=== PATIENT | male | born 1965 | race Two or more races ===

== ENCOUNTER 2017-03-06 14:32 | Emergency (ER) | payer MEDICAID ==
[~2017-03-06] VITALS: Ht 160 cm; Wt 74.8 kg
[~2017-03-06 14:32] MED LIST: AMLO10TA2 PO; CARV25TA PO; LISI-275 PO
[2017-03-06 15:24] VITALS: BP 138/78
== END 2017-03-06 16:01 | disposition home or self-care (01) ==
LOC: ER 14:32
DX: Z76.1 Encounter for health supervision and care of foundling (principal); I12.0 Hypertensive chronic kidney disease with stage 5 chronic kidney disease or end stage renal disease; E11.22 Type 2 diabetes mellitus with diabetic chronic kidney disease; N18.6 End stage renal disease; Z99.2 Dependence on renal dialysis; Z83.3 Family history of diabetes mellitus; Z79.4 Long term (current) use of insulin

== ENCOUNTER 2017-04-17 13:36 | Emergency (ER) | payer MEDICAID ==
[~2017-04-17] VITALS: Ht 160 cm; Wt 59.0 kg
[2017-04-17 14:27] VITALS: BP 138/90
== END 2017-04-17 14:57 | disposition home or self-care (01) ==
LOC: ER 13:46
DX: I12.0 Hypertensive chronic kidney disease with stage 5 chronic kidney disease or end stage renal disease (principal); E11.22 Type 2 diabetes mellitus with diabetic chronic kidney disease; N18.6 End stage renal disease; Z99.2 Dependence on renal dialysis; Z79.899 Other long term (current) drug therapy; Z76.0 Encounter for issue of repeat prescription

== ENCOUNTER → 2019-08-11 | Emergency (ER) | payer MEDICARE, MEDICAID ==
[~2019-08-11] VITALS: Ht 157.5 cm; Wt 59.0 kg
[~2019-08-11] MED LIST changes: +AMLO10TA13 PO; -AMLO10TA2 PO; +CAR125T PO; +LINA5TAB PO
[2019-08-11 13:18] LABS: Basophils # (auto) 0 10 ^3/uL (0-0.2); Eosinophils # (auto) 0.3 10 ^3/uL (0-0.8); Eosinophils % (auto) 5.6 % (0.0-7.0); Hematocrit 39.5 % (41.0-53.0); Hemoglobin 12.6 g/dL (13.5-17.5); Lymphocytes # (auto) 1.1 10 ^3/uL (0.4-5.4); Lymphocytes % (auto) 23.1 % (10.0-50.0); Mean Corpuscular Hemoglobin 31.7 pg (28.0-32.0); Mean Corpuscular Hgb Conc. 31.9 g/dL (32.0-36.0); Mean Corpuscular Volume 99.3 fL (80.0-100.0); Monocytes # (auto) 0.5 10 ^3/uL (0-1.3); Monocytes % (auto) 10.5 % (0.0-12.0); Neutrophils # (auto) 2.8 10 ^3/uL (1.6-8.6); Neutrophils % (auto) 59.8 % (37.0-80.0); Nucleated Red Blood Cells % 0.1 %; Platelet Count (auto) 191 10^3/uL (140-450); Red Blood Cells 3.98 10^6/uL (4.5-5.90); Red Cell Distribution Width 15.2 % (11.8-14.3); White Blood Cell 4.6 10^3/uL (4.4-10.8)
[2019-08-11 13:33] LABS: Albumin 3.9 g/dL (3.4-5.0); Calcium 8.6 mg/dL (8.5-10.1); Magnesium 3.4 mg/dL (1.6-2.6); Potassium 4.6 mmol/L (3.5-5.1)
[2019-08-11 13:36] LABS: BUN/Creatinine Ratio 5.5; Bilirubin, Total 0.4 mg/dL (0.2-1.0); Total Protein 7.8 g/dL (6.4-8.2)
[2019-08-11 14:07] VITALS: BP 155/76
== END | disposition home or self-care (01) ==
LOC: ER 11:36
DX: E11.22 Type 2 diabetes mellitus with diabetic chronic kidney disease (principal); I12.0 Hypertensive chronic kidney disease with stage 5 chronic kidney disease or end stage renal disease; N18.6 End stage renal disease; Z99.2 Dependence on renal dialysis
CPT/HCPCS: 36415; 80053; 83735; 85025

== ENCOUNTER 2019-08-12 20:34 | Inpatient (IN) | payer MEDICARE, MEDICAID ==
[~2019-08-12] VITALS: Ht 160 cm; Wt 56.2 kg
[~2019-08-12 20:34] MED LIST changes: -CAR125T PO; -LINA5TAB PO
[2019-08-12 21:41] LABS: Basophils # (auto) 0 10 ^3/uL (0-0.2); Basophils % (auto) 0.7 % (0.0-2.0); Eosinophils # (auto) 0.3 10 ^3/uL (0-0.8); Eosinophils % (auto) 7.6 % (0.0-7.0); Hematocrit 34.7 % (41.0-53.0); Hemoglobin 11.5 g/dL (13.5-17.5); Lymphocytes # (auto) 0.9 10 ^3/uL (0.4-5.4); Lymphocytes % (auto) 19.7 % (10.0-50.0); Mean Corpuscular Hemoglobin 32.8 pg (28.0-32.0); Mean Corpuscular Hgb Conc. 33.2 g/dL (32.0-36.0); Mean Corpuscular Volume 98.9 fL (80.0-100.0); Monocytes # (auto) 0.4 10 ^3/uL (0-1.3); Monocytes % (auto) 9.9 % (0.0-12.0); Neutrophils # (auto) 2.8 10 ^3/uL (1.6-8.6); Neutrophils % (auto) 62.1 % (37.0-80.0); Platelet Count (auto) 170 10^3/uL (140-450); Red Blood Cells 3.51 10^6/uL (4.5-5.90); Red Cell Distribution Width 15.2 % (11.8-14.3); White Blood Cell 4.5 10^3/uL (4.4-10.8)
[2019-08-12 22:14] LABS: Albumin 3.6 g/dL (3.4-5.0); Calcium 7.7 mg/dL (8.5-10.1)
[2019-08-12 22:18] LABS: BUN/Creatinine Ratio 6.6; Bilirubin, Total 0.3 mg/dL (0.2-1.0); Total Protein 7.1 g/dL (6.4-8.2)
[2019-08-12 22:45] LABS: Potassium 5.7 mmol/L (3.5-5.1)
[2019-08-12] MEDS ORDERED: DEXTROSE (50%) 50ML SYRG IV ONE (23:00)
[2019-08-12] MEDS ORDERED: CALCIUM GLUC 4.65meq/50ml D5AE 50 ML IV ONE (23:00)
[2019-08-12] MEDS ORDERED: SODIUM BICARBONATE 8.4 % INJ 50ML VIAL IV ONE (23:00)
[2019-08-12] MEDS ORDERED: InsuLIN REG 1unit/0.01ml Soln (100units/ml) IV ONE (23:00)
[2019-08-13] VITALS (7 sets, daily range): BP systolic 141–164; BP diastolic 72–81
[2019-08-13] MEDS ORDERED: DEXTROSE (50%) 50ML SYRG IV PRN (00:30)
[2019-08-13] MEDS ORDERED: ACETAMINOPHEN 325 MG TAB PO PRN (00:30)
[2019-08-13] MEDS ORDERED: ONDANSETRON HCL 4 MG/2 ML VIAL IV PRN (00:30)
[2019-08-13] MEDS ORDERED: TEMAZEPAM 15 MG CAP PO PRN (00:30)
[2019-08-13] MEDS ORDERED: MORPHINE SULF INJ 2 MG/ML SYRINGE 1ML IV PRN (00:45)
[2019-08-13] MEDS ORDERED: NITROGLYCERIN 0.4 MG SL TAB SL PRN (00:45)
--- NOTE | 2019-08-13 01:50 | NUR ---
Telemetry admit from ER MARLENE BRITT J admitted to Telemetry unit. Patient oriented to KRISH GARCIA OCA, primary RN, unit, room, bed, and unit policies regarding patient care and visiting hours. Patient now on continuous telemetry monitoring, tele box #52 and telemetry reading on arrival to unit is sinus rhythm. Patient weighed by bedscale and encouraged to call if they need something. All questions and concerns addressed, patient verbalized understanding. Bed in lowest locked position, call light within reach, side rails up x2, fall precautions in place. Will continue to monitor Q1hr and PRN.
[2019-08-13] MEDS: cloNIDine HCL 0.1 MG TAB PO PRN (02:30)
[2019-08-13] MEDS ORDERED: CAR125T PO (02:45)
[2019-08-13] MEDS ORDERED: LINA5TAB PO (02:45)
[2019-08-13] MEDS: InsuLIN REG 1unit/0.01ml Soln (100units/ml) SC SCH ×3 (06:00→18:03)
[2019-08-13] MEDS: ACCU-CHEK COMFORT CURVE STRIP VI SCH ×3 (06:16→18:03)
--- NOTE | 2019-08-13 07:40 | NUR ---
Opening shift note Assumed care of patient. Patient A&Ox4, respirations even and non-labored with no s/s of distress. POC on white board. Discussed pain and patient stated that he was 0/10 pain. IV flushed, patent and intact. Bed lowered/locked with 2 side rails up. Will continue to monitor.
[2019-08-13 07:43] LABS: BUN/Creatinine Ratio 6.9; Calcium 8.1 mg/dL (8.5-10.1); Potassium 5.2 mmol/L (3.5-5.1)
[2019-08-13] MEDS: amLODIPine BESYLATE 5 MG TAB PO SCH (10:00)
[2019-08-13] MEDS: CARVEDILOL 12.5 MG TAB PO SCH ×2 (10:00→21:27)
[2019-08-13] MEDS: LISINOPRIL 5 MG TAB PO SCH (10:00)
[2019-08-13] MEDS: PANTOPRAZOLE 40 MG TAB PO SCH (10:24)
[2019-08-13] MEDS ORDERED: SODIUM CHL 0.9% 1000 ML BAG XX ONE (11:00)
--- NOTE | 2019-08-13 15:01 | NUR ---
Assessment Patient is a 54- year old male alert and oriented. Assessment was completed with patient dafne Lamb. Prior to admission patient lived home with family. Patient son Adonis informed me patient can care for his own ADLs. Patient will return home to his prior living arrangements post discharge and family will transport him home. 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 Patient will benefit from a walker. Informed Adonis I will inform Nurse regarding order for walker. dAonis informed me patient had a chair time in [facility] and recently move to [facility] which he missed 4 days of dialysis. Advised Adonis there is a Social Service consult for outpatient chair time with [facility]. Informed Adonis clinical information will be faxed to [facility] dialysis. Informed patient dafne Lamb he has the right to participate in all discharge planning. Patient dafne Lamb verbalized understanding and agrees to discharge plan. Faxed Clinical information to [facility]. Placed called to Cheri with [facility] advising her patient was on dialyisis in [facility]. Cheri with [facility] advised me patient will be consider as a new admit and will follow up with me with chair time after order has been reviewed. Addendum: 08/13/19 at 1501 by ROGELIO GONZALES Amended: Links added.
--- NOTE | 2019-08-13 15:47 | NUR ---
D/C Planning Per consult for a walker. Faxed clinical information to [facility] requesting for walker to be deliver to bedside. Per Sandra with [facility] Ph:( [phone]) order was received and they will deliver walker to bedside upon d/c day. Addendum: 08/13/19 at 1550 by ROGELIO ARIAS Amended: Links added.
--- NOTE | 2019-08-13 19:20 | NUR ---
Opening Shift Note Assumed care of patient, awake and alert. No S/S of distress/SOB or pain. Instructed on POC and to call for assist PRN. Bed in lowest locked position, call light within reach, side rails up x2, fall precautions in place. Will continue to monitor for changes Q1hr and PRN.
[2019-08-14] VITALS (7 sets, daily range): BP systolic 128–145; BP diastolic 72–80
[2019-08-14] MEDS: InsuLIN REG 1unit/0.01ml Soln (100units/ml) SC SCH ×4 (00:01→18:00)
[2019-08-14 05:37] LABS: Basophils # (auto) 0 10 ^3/uL (0-0.2); Basophils % (auto) 0.7 % (0.0-2.0); Eosinophils # (auto) 0.3 10 ^3/uL (0-0.8); Eosinophils % (auto) 6.4 % (0.0-7.0); Hematocrit 34.5 % (41.0-53.0); Hemoglobin 11.6 g/dL (13.5-17.5); Lymphocytes # (auto) 1.1 10 ^3/uL (0.4-5.4); Lymphocytes % (auto) 27.3 % (10.0-50.0); Mean Corpuscular Hemoglobin 32.9 pg (28.0-32.0); Mean Corpuscular Hgb Conc. 33.5 g/dL (32.0-36.0); Monocytes # (auto) 0.5 10 ^3/uL (0-1.3); Monocytes % (auto) 11.5 % (0.0-12.0); Neutrophils # (auto) 2.2 10 ^3/uL (1.6-8.6); Neutrophils % (auto) 54.1 % (37.0-80.0); Nucleated Red Blood Cells % 0.1 %; Platelet Count (auto) 128 10^3/uL (140-450); Red Blood Cells 3.52 10^6/uL (4.5-5.90); Red Cell Distribution Width 14.9 % (11.8-14.3); White Blood Cell 4.1 10^3/uL (4.4-10.8)
[2019-08-14] MEDS: ACCU-CHEK COMFORT CURVE STRIP VI SCH ×4 (06:16→18:00)
--- NOTE | 2019-08-14 07:30 | NUR ---
RECEIVED REPORT FROM NIGHT NURSE. PATIENT RESTING IN BED, NO DISTRESS NOTED.
[2019-08-14 08:49] LABS: Hepatitis B Surface Antibody Positive
[2019-08-14 09:25] LABS: Hepatitis A Total Antibody Positive
[2019-08-14] MEDS: PANTOPRAZOLE 40 MG TAB PO SCH (09:31)
[2019-08-14] MEDS: amLODIPine BESYLATE 5 MG TAB PO SCH (09:31)
[2019-08-14] MEDS: CARVEDILOL 12.5 MG TAB PO SCH ×2 (09:31→22:02)
[2019-08-14] MEDS: LISINOPRIL 5 MG TAB PO SCH (09:32)
[2019-08-14 09:43] LABS: Hepatitis B Core Total AB Negative; Hepatitis B Surface Antigen Negative (Negative); Hepatitis C Antibody Negative (Negative)
[2019-08-14 09:45] LABS: Hepatitis B Surface Antigen Negative (Negative)
[2019-08-14 09:46] LABS: Hepatitis C Antibody Negative (Negative)
--- NOTE | 2019-08-14 11:00 | NUR ---
DOCTOR JACKSON AT BEDSIDE.
[2019-08-14 11:25] LABS: BUN/Creatinine Ratio 5.8; Potassium 4.3 mmol/L (3.5-5.1)
--- NOTE | 2019-08-14 12:24 | NUR ---
D/C Planning Placed follow up called to Cheri with [facility]. Per Cheri with [facility] they are pending financial clearance and will follow up with me once its clear to provide chair time.
--- NOTE | 2019-08-14 19:40 | NUR ---
Opening Shift Note Assumed care of patient, awake, AAOx4. No S/S of distress/SOB or pain. On room air and ambulatory. Primarily Italian speaking but can communicate in Singaporean. Bed in lowest locked position, side rails up x2, call light within reach. Instructed on POC and to call for assist PRN, will continue to monitor for changes Q1hr and PRN.
[2019-08-15] MEDS: ACCU-CHEK COMFORT CURVE STRIP VI SCH ×5 (00:11→23:19)
[2019-08-15] MEDS: InsuLIN REG 1unit/0.01ml Soln (100units/ml) SC SCH ×5 (00:17→23:19)
[2019-08-15 05:00] VITALS: BP 140/78
--- NOTE | 2019-08-15 05:17 | NUR ---
BORE MINER OPERATOR AT BEDSIDE
[2019-08-15] MEDS ORDERED: SODIUM CHL 0.9% 1000 ML BAG XX ONE (07:00)
--- NOTE | 2019-08-15 08:20 | NUR ---
Received report from dialysis nurse stop time was 07:59 . 2.1 liters removed end v/s 119/60 54 pulse, 16 respirations. Patient tolerated well.
--- NOTE | 2019-08-15 08:32 | NUR ---
D/C Planning Received a follow up called from Pamella with [facility] dialysis advising me they are pending authorization from patient secondary insurance and will follow up with chair time once they receive authorization. Will informed nurse.
--- NOTE | 2019-08-15 08:39 | NUR ---
Received call from Shayla major case detective, per Shayla roberto is requesting authorization from patient's secondary insurance once received they will schedule chair time.
[2019-08-15 09:00] VITALS: BP 146/80
[2019-08-15] MEDS: PANTOPRAZOLE 40 MG TAB PO SCH (09:56)
[2019-08-15] MEDS: LISINOPRIL 5 MG TAB PO SCH (09:58)
[2019-08-15] MEDS: amLODIPine BESYLATE 5 MG TAB PO SCH (09:58)
[2019-08-15] MEDS: CARVEDILOL 12.5 MG TAB PO SCH ×2 (10:10→21:33)
[2019-08-15 13:00] VITALS: BP 159/73
--- NOTE | 2019-08-15 15:17 | NUR ---
D/C Planning Placed followed up called to Cheri with [facility] dialysis. Per Cheri with [facility] they are still pending authorization from secondary insurance and it can take up to Sunday08/19/2019. Will follow up on Sunday.
[2019-08-15 16:52] VITALS: BP 117/60
--- NOTE | 2019-08-15 19:07 | NUR ---
Patient resting in bed, respiration are even and unlabored, no S/S of distress noted. Care endorsed to NOC estrellita Mayorga.
[2019-08-15 21:58] VITALS: BP 119/67
[2019-08-16 05:08] VITALS: BP 141/67
[2019-08-16] MEDS: InsuLIN REG 1unit/0.01ml Soln (100units/ml) SC SCH ×4 (06:00→23:26)
[2019-08-16] MEDS: ACCU-CHEK COMFORT CURVE STRIP VI SCH ×4 (06:20→23:25)
--- NOTE | 2019-08-16 07:18 | NUR ---
Opening Shift Note Assumed care of patient, awake and alert. No S/S of distress/SOB or pain. Instructed on POC and to call for assist PRN, will continue to monitor for changes Q1hr and PRN. Bed is set in lowest locked position with side rails up x2 for safety and call light is within reach.
[2019-08-16 08:00] VITALS: BP 134/70
[2019-08-16 08:57] VITALS: BP 134/70
--- NOTE | 2019-08-16 09:15 | NUR ---
MD at bedside Dr. Ovalle, updated pt on POC and notified patient we are currently awaiting chair time to be arranged before discharge planning can continue. Patient verbalized understanding.
[2019-08-16] MEDS: amLODIPine BESYLATE 5 MG TAB PO SCH (10:00)
[2019-08-16] MEDS: PANTOPRAZOLE 40 MG TAB PO SCH (10:07)
[2019-08-16] MEDS: LISINOPRIL 5 MG TAB PO SCH (10:08)
[2019-08-16 12:33] VITALS: BP 123/75
[2019-08-16 16:37] VITALS: BP 136/73
--- NOTE | 2019-08-16 19:25 | NUR ---
Opening note pt is resting in left lateral position. pt is mostly Chilean speaking. pt denies pain at this time. respirations are even and non labored on room air. bed in low locked position, and call light is within reach.
[2019-08-16 22:00] VITALS: BP 129/66
--- NOTE | 2019-08-17 02:12 | NUR ---
pt resting comfortably in left lateral, respirations even and nonlabored, no s/s of pain or discomfort.
[2019-08-17 05:00] VITALS: BP 149/74
[2019-08-17] MEDS: ACCU-CHEK COMFORT CURVE STRIP VI SCH ×4 (05:17→23:56)
[2019-08-17] MEDS: InsuLIN REG 1unit/0.01ml Soln (100units/ml) SC SCH ×4 (05:17→23:56)
--- NOTE | 2019-08-17 06:49 | NUR ---
closing note pt is A&Ox4. pt denies pain or discomfort. respirations are even and non labored. bed in low locked position, call light within reach.
--- NOTE | 2019-08-17 07:15 | NUR ---
Opening Shift Note Assumed care of patient, awake and alert. No S/S of distress/SOB or pain. Instructed on POC and to call for assist PRN, will continue to monitor for changes Q1hr and PRN. Bed is set in lowest locked position with side rails up x 2 for safety and call light is within reach.
[2019-08-17 08:01] VITALS: BP 142/72
[2019-08-17 09:00] VITALS: BP 142/72
[2019-08-17] MEDS: PANTOPRAZOLE 40 MG TAB PO SCH (09:40)
[2019-08-17] MEDS: LISINOPRIL 5 MG TAB PO SCH (09:40)
[2019-08-17] MEDS: amLODIPine BESYLATE 5 MG TAB PO SCH (09:41)
[2019-08-17 13:00] VITALS: BP 140/77
[2019-08-17 13:17] LABS: BUN/Creatinine Ratio 7.8; Calcium 8.1 mg/dL (8.5-10.1)
--- NOTE | 2019-08-17 13:37 | NUR ---
Spoke to MD Dr. Osmany MD aware of patient's BUN level of 94 and creatinine level of 12.10. No new orders received at this time.
--- NOTE | 2019-08-17 16:28 | NUR ---
Spoke with dialysis nurse Nurse states she is on her way to hospital and patient is to be dialyzed today per MD order.
[2019-08-17 17:00] VITALS: BP 122/66
--- NOTE | 2019-08-17 17:47 | NUR ---
Dialysis nurse at bedside
[2019-08-17] MEDS ORDERED: SODIUM CHL 0.9% 1000 ML BAG XX ONE (18:00)
--- NOTE | 2019-08-17 19:24 | NUR ---
Care endorsed to NOC RN.
[2019-08-17] MEDS ORDERED: EPOETIN ALFA 10,000 UNIT/1 ML VIAL SC ONE (21:00)
--- NOTE | 2019-08-17 21:00 | NUR ---
Pt finished with HD Per lodge officer there was 2l of fluid taken out. Pt tolerated well. BP-126/76, HR-68.
[2019-08-17 22:00] VITALS: BP 122/71
[2019-08-18 05:00] VITALS: BP 114/71
[2019-08-18] MEDS: InsuLIN REG 1unit/0.01ml Soln (100units/ml) SC SCH ×3 (05:27→18:03)
[2019-08-18] MEDS: ACCU-CHEK COMFORT CURVE STRIP VI SCH ×3 (05:30→18:02)
[2019-08-18 05:39] LABS: Basophils # (auto) 0 10 ^3/uL (0-0.2); Basophils % (auto) 0.6 % (0.0-2.0); Eosinophils # (auto) 0.2 10 ^3/uL (0-0.8); Hematocrit 37.4 % (41.0-53.0); Hemoglobin 12.7 g/dL (13.5-17.5); Lymphocytes # (auto) 0.9 10 ^3/uL (0.4-5.4); Lymphocytes % (auto) 20.8 % (10.0-50.0); Mean Corpuscular Hemoglobin 33.1 pg (28.0-32.0); Mean Corpuscular Volume 97.4 fL (80.0-100.0); Monocytes # (auto) 0.5 10 ^3/uL (0-1.3); Monocytes % (auto) 11.7 % (0.0-12.0); Neutrophils # (auto) 2.5 10 ^3/uL (1.6-8.6); Neutrophils % (auto) 60.9 % (37.0-80.0); Nucleated Red Blood Cells % 0.1 %; Platelet Count (auto) 114 10^3/uL (140-450); Red Blood Cells 3.84 10^6/uL (4.5-5.90); Red Cell Distribution Width 14.8 % (11.8-14.3); White Blood Cell 4.1 10^3/uL (4.4-10.8)
[2019-08-18 06:13] LABS: Chloride 101 mmol/L (98-107); Potassium 5.3 mmol/L (3.5-5.1); Sodium 139 mmol/L (136-145)
[2019-08-18 06:24] LABS: Anion Gap 11 (5-15); Calcium 8.1 mg/dL (8.5-10.1); Carbon Dioxide 27 mmol/L (21-32)
[2019-08-18 06:37] LABS: Blood Urea Nitrogen 68 mg/dL (7-18); GFR African American 7 mL/min; GFR Non-African American 6 mL/min; Glucose 183 mg/dL (74-106)
--- NOTE | 2019-08-18 08:05 | NUR ---
Opening note Assumed care of patient, awake and alert. No S/S of distress/SOB or pain. Instructed on POC and to call for assist PRN, will continue to monitor for changes. Bed locked in lowest position side rails up times two. Call light within reach.
[2019-08-18 09:00] VITALS: BP 163/88
[2019-08-18] MEDS: amLODIPine BESYLATE 5 MG TAB PO SCH (09:16)
[2019-08-18] MEDS: PANTOPRAZOLE 40 MG TAB PO SCH (09:16)
[2019-08-18] MEDS: LISINOPRIL 5 MG TAB PO SCH (09:17)
[2019-08-18] MEDS: SEVELAMER 800 MG TAB PO SCH ×2 (12:30→18:02)
[2019-08-18 13:00] VITALS: BP 137/68
--- NOTE | 2019-08-18 14:09 | NUR ---
D/C Planning Placed followed up called to Cheri with [facility] dialysis. Per Cheri with [facility] they are still pending authorization from secondary insurance they requested authorization on 08/14/2019 and it can take up to 5 business. Informed REHANA Joseph. Will follow up tomorrow Sunday.
--- NOTE | 2019-08-18 15:42 | NUR ---
NUTRITION ASSESSMENT NOTES Please refer to link notes of nutrition screen form filed under the intervention section of the plan of care for further details. Est. Energy Needs: 8361-4720 kcal (25-30 kcal/kg BW). Est. Protein Needs: 1.2-1.4 gms/day (68-79 gms/kg BW). Will continue to monitor pertinent labs and reassess nutrient need prn Addendum: 08/18/19 at [address] Amended: Links added.
[2019-08-18 16:59] VITALS: BP 106/71
--- NOTE | 2019-08-18 18:46 | NUR ---
PATIENT ROUNDS PATIENT SITTING UP IN BED EATING DINNER. NO S/S OF DISTRESS/SOB OR PAIN. CARE ENDORSED TO PLANNING CONSULTANT RN.
[2019-08-18 22:01] VITALS: BP 154/79
[2019-08-19] MEDS: ACCU-CHEK COMFORT CURVE STRIP VI SCH ×5 (00:04→23:42)
[2019-08-19 05:00] VITALS: BP 135/74
[2019-08-19 05:31] LABS: Basophils # (auto) 0 10 ^3/uL (0-0.2); Basophils % (auto) 0.4 % (0.0-2.0); Eosinophils # (auto) 0.2 10 ^3/uL (0-0.8); Eosinophils % (auto) 5.6 % (0.0-7.0); Hematocrit 36.6 % (41.0-53.0); Hemoglobin 12.4 g/dL (13.5-17.5); Lymphocytes # (auto) 0.9 10 ^3/uL (0.4-5.4); Lymphocytes % (auto) 22.4 % (10.0-50.0); Mean Corpuscular Hemoglobin 33.1 pg (28.0-32.0); Mean Corpuscular Hgb Conc. 33.9 g/dL (32.0-36.0); Mean Corpuscular Volume 97.7 fL (80.0-100.0); Monocytes # (auto) 0.4 10 ^3/uL (0-1.3); Monocytes % (auto) 9.7 % (0.0-12.0); Neutrophils # (auto) 2.6 10 ^3/uL (1.6-8.6); Neutrophils % (auto) 61.9 % (37.0-80.0); Nucleated Red Blood Cells % 0.1 %; Platelet Count (auto) 123 10^3/uL (140-450); Red Blood Cells 3.74 10^6/uL (4.5-5.90); Red Cell Distribution Width 14.8 % (11.8-14.3); White Blood Cell 4.2 10^3/uL (4.4-10.8)
[2019-08-19 05:51] LABS: BUN/Creatinine Ratio 7.7; Calcium 8.6 mg/dL (8.5-10.1)
[2019-08-19 05:53] LABS: % Iron Saturation 27.9 % (20-55)
[2019-08-19 05:54] LABS: Potassium 6.6 mmol/L (3.5-5.1)
[2019-08-19] MEDS: InsuLIN REG 1unit/0.01ml Soln (100units/ml) SC SCH ×5 (06:00→23:47)
--- NOTE | 2019-08-19 06:10 | NUR ---
Critical Labs K-6.6, BUN-88, Creatinine- 11.50 Hospitalist made aware of critical labs. States that he will place orders.
[2019-08-19] MEDS ORDERED: SODIUM CHL 0.9% 1000 ML BAG XX ONE (07:00)
--- NOTE | 2019-08-19 07:15 | NUR ---
Opening Shift Note Assumed care of patient, pt sitting in bed A&Ox4. No S/S of distress or SOB, denies any pain at the moment. Instructed on POC and to call for assistance as needed. Safety measures in place, bed set to lowest locked position x2 rails up. Will continue to monitor for changes Q1hr and PRN.
[2019-08-19 09:00] VITALS: BP 152/74
[2019-08-19] MEDS: LISINOPRIL 5 MG TAB PO SCH (10:00)
--- NOTE | 2019-08-19 10:40 | NUR ---
New Orders Dr. Ovalle at bedside, notified of elevated potassium of 6.6 and that per dialysis nurse patient may not received dialysis until late evening or tomorrow 08/19. New orders received (please see eMAR), will carry out orders. Per Vasquez patient is okay to continue Lisinopril since patient is already receiving dialysis and receiving treatment for hyperkalemia.
[2019-08-19] MEDS ORDERED: DEXTROSE (50%) 50ML SYRG IV ONE (10:45)
[2019-08-19] MEDS ORDERED: CALCIUM GLUC 4.65meq/50ml D5AE 50 ML IV ONE (10:45)
[2019-08-19] MEDS ORDERED: InsuLIN REG 1unit/0.01ml Soln (100units/ml) IV ONE (10:45)
[2019-08-19] MEDS ORDERED: SODIUM BICARBONATE 8.4 % INJ 50ML VIAL IV ONE (10:45)
[2019-08-19] MEDS: SEVELAMER 800 MG TAB PO SCH ×3 (10:55→17:54)
[2019-08-19] MEDS: PANTOPRAZOLE 40 MG TAB PO SCH (10:55)
[2019-08-19] MEDS: amLODIPine BESYLATE 5 MG TAB PO SCH (10:57)
--- NOTE | 2019-08-19 12:10 | NUR ---
IV removal/IV insertion IV DC'd with clean sterile technique, catheter fully intact. Pressure dressing applied to site. Patient tolerated well. IV access obtained, via clean sterile technique by inserting 20 gauge catheter at RIGHT AC after 1 attempt. IV secured properly. No trauma to site. Patient tolerated well.
--- NOTE | 2019-08-19 13:24 | NUR ---
Dialysis at Bedside.
[2019-08-19 13:32] VITALS: BP 138/70
--- NOTE | 2019-08-19 15:51 | NUR ---
D/C Planning Placed followed up called to Cheri with [facility] dialysis. Per Cheri with [facility] they are still pending authorization from secondary insurance and she will follow up upon receiving authorization. Will follow up on Sunday08/20/2019.
--- NOTE | 2019-08-19 16:30 | NUR ---
DIALYSIS COMPLETED 2.3L REMOVED ENDING BP 132/75 HR 70 RR 18, PRESSURE DRESSING IN PLACE, PER DIALYSIS NURSE, PATIENT TOLERATED IT WELL.
[2019-08-19 16:39] VITALS: BP 151/84
--- NOTE | 2019-08-19 19:30 | NUR ---
Opening Shift Note Assumed care of patient, awake and alert oriented x4. No S/S of distress/SOB or pain noted. Instructed on POC and to call for assist PRN. Bed is in lowest locked position with bed rails up x2 and call light is within reach.
--- NOTE | 2019-08-19 20:42 | NUR ---
Epogen held: Epogen held due to contraindication for HGB lab value for dialysis patient. Patients last HGB level was 12.4.
[2019-08-19] MEDS: cloNIDine HCL 0.1 MG TAB PO PRN (20:53)
[2019-08-19] MEDS ORDERED: EPOETIN ALFA 10,000 UNIT/1 ML VIAL SC ONE (21:00)
[2019-08-19 22:00] VITALS: BP 162/87
[2019-08-20 05:00] VITALS: BP 103/56
[2019-08-20] MEDS: ACCU-CHEK COMFORT CURVE STRIP VI SCH ×4 (05:48→23:58)
[2019-08-20] MEDS: InsuLIN REG 1unit/0.01ml Soln (100units/ml) SC SCH ×3 (05:52→17:57)
--- NOTE | 2019-08-20 07:03 | NUR ---
Paged hospitalist: Paged hospitalist regarding need for updated labs for patient. Waiting for call back to request to have updated lab draw.
--- NOTE | 2019-08-20 07:08 | NUR ---
HOSPITALIST CALLED BACK: HOSPITALIST GRIFFIN CALLED BACK. UPDATED ABOUT PATIENT NOT HAVING UPDATED LABS FOR AM TO ASSESS LABS LEVELS, ALSO UPDATED ABOUT PATIENTS PRIOR LABS. ORDERED A BMP AT THIS TIME. TO PLACE ORDERS.
[2019-08-20 08:00] VITALS: BP 116/68
[2019-08-20 08:02] LABS: BUN/Creatinine Ratio 6.7; Calcium 8.3 mg/dL (8.5-10.1); Potassium 5.5 mmol/L (3.5-5.1)
[2019-08-20 08:30] VITALS: BP 116/68
--- NOTE | 2019-08-20 08:30 | NUR ---
Opening Shift Note Assumed care of patient, awake, alert and oriented. No S/S of distress/SOB or pain. Bed locked, in lowest position call light within reach. Instructed on POC and to call for assist PRN. Will continue to monitor for changes Q1hr and PRN.
[2019-08-20] MEDS: PANTOPRAZOLE 40 MG TAB PO SCH (09:11)
[2019-08-20] MEDS: SEVELAMER 800 MG TAB PO SCH ×3 (09:13→17:57)
[2019-08-20] MEDS: amLODIPine BESYLATE 5 MG TAB PO SCH (09:13)
[2019-08-20] MEDS: SODIUM ZIRCONIUM CYCL 10 GM PAK PO SCH (11:37)
[2019-08-20 12:00] VITALS: BP 123/72
[2019-08-20 16:55] VITALS: BP 156/83
--- NOTE | 2019-08-20 19:11 | NUR ---
CARE ENDORSED TO SHEILA KIMBALL.
--- NOTE | 2019-08-20 19:30 | NUR ---
Opening Shift Note Assumed care of patient after receiving report from day RN Simi. Patient awake and alert, resting in bed comfortably with HOB raised. No S/S of distress/SOB or pain. Instructed on POC and to call for assist PRN, will continue to monitor for changes Q1hr and PRN.
[2019-08-20 22:00] VITALS: BP 135/60
[2019-08-21] VITALS (7 sets, daily range): BP systolic 115–149; BP diastolic 66–81
[2019-08-21] MEDS: InsuLIN REG 1unit/0.01ml Soln (100units/ml) SC SCH ×4 (00:07→17:34)
[2019-08-21 05:34] LABS: Basophils # (auto) 0 10 ^3/uL (0-0.2); Basophils % (auto) 0.6 % (0.0-2.0); Eosinophils # (auto) 0.2 10 ^3/uL (0-0.8); Eosinophils % (auto) 4.7 % (0.0-7.0); Hematocrit 34.5 % (41.0-53.0); Lymphocytes # (auto) 0.9 10 ^3/uL (0.4-5.4); Lymphocytes % (auto) 23.8 % (10.0-50.0); Mean Corpuscular Hemoglobin 33.2 pg (28.0-32.0); Mean Corpuscular Hgb Conc. 34.8 g/dL (32.0-36.0); Mean Corpuscular Volume 95.4 fL (80.0-100.0); Monocytes # (auto) 0.5 10 ^3/uL (0-1.3); Monocytes % (auto) 13.1 % (0.0-12.0); Neutrophils # (auto) 2.2 10 ^3/uL (1.6-8.6); Neutrophils % (auto) 57.8 % (37.0-80.0); Platelet Count (auto) 117 10^3/uL (140-450); Red Blood Cells 3.62 10^6/uL (4.5-5.90); Red Cell Distribution Width 14.2 % (11.8-14.3); White Blood Cell 3.8 10^3/uL (4.4-10.8)
[2019-08-21 05:56] LABS: Potassium 4.7 mmol/L (3.5-5.1)
[2019-08-21 06:00] LABS: BUN/Creatinine Ratio 7.5; Calcium 8.3 mg/dL (8.5-10.1)
[2019-08-21 06:07] LABS: % Iron Saturation 48.9 % (20-55)
[2019-08-21] MEDS: ACCU-CHEK COMFORT CURVE STRIP VI SCH ×3 (06:28→17:14)
--- NOTE | 2019-08-21 06:33 | NUR ---
Critical Received critical lab value for BUN of 83 and Creat of 11.0. Hospitalist notified, no new orders were received at this time. Will continue to monitor.
[2019-08-21] MEDS ORDERED: SODIUM CHL 0.9% 1000 ML BAG XX ONE (07:00)
--- NOTE | 2019-08-21 07:30 | NUR ---
Opening shift note Assumed care of patient. Patient A&Ox4, respirations even and non-labored with no s/s of distress. Patient sitting up on the side of the bed with breakfast. Discussed POC with patient and holding medications due to dialysis pending this morning. Bed lowered/locked with 2 side rails up. Patient with call light within reach. Will continue to monitor.
[2019-08-21] MEDS: SEVELAMER 800 MG TAB PO SCH ×3 (08:00→17:34)
--- NOTE | 2019-08-21 09:56 | NUR ---
Page to Shayla Page to Shayla at this time to follow-up regarding patient's outpatient chair time. Awaiting call back.
[2019-08-21] MEDS: SODIUM ZIRCONIUM CYCL 10 GM PAK PO SCH ×2 (10:00→14:21)
[2019-08-21] MEDS: amLODIPine BESYLATE 5 MG TAB PO SCH ×2 (10:00→12:31)
[2019-08-21] MEDS: LISINOPRIL 5 MG TAB PO SCH ×2 (10:00→12:32)
[2019-08-21] MEDS: PANTOPRAZOLE 40 MG TAB PO SCH ×2 (10:00→12:31)
--- NOTE | 2019-08-21 10:10 | NUR ---
Return Call from Body Presser Spoke with Shayla in social contact worker. As of yesterday, authorization has not yet been provided. Shayla will follow-up today and notify this RN with an update.
--- NOTE | 2019-08-21 10:16 | NUR ---
Organic Chemist Update Shayla spoke with delivery representative at [facility]. Authorization has still not been obtained. Per Shayla, delivery representative will follow-up today and notify Shayla. Shayla will notify this RN with an update.
--- NOTE | 2019-08-21 11:46 | NUR ---
D/C Planning Per Cheri with [facility] authorization is still pending. Informed REHANA Sweeney I will follow up with any updates.
--- NOTE | 2019-08-21 19:30 | NUR ---
Closing Shift Note Patient resting in bed. No distress noted. Report given. Will endorse care to the acid remover RN.
--- NOTE | 2019-08-21 20:05 | NUR ---
Opening Shift Note Assumed care of patient, awake and alert. No S/S of distress/SOB or pain. Patient is on room air. Respirations even and unlabored. Instructed on POC and to call for assist PRN, will continue to monitor for changes Q1hr and PRN.
[2019-08-21] MEDS ORDERED: EPOETIN ALFA 10,000 UNIT/1 ML VIAL SC ONE (21:00)
--- NOTE | 2019-08-21 21:16 | NUR ---
Epogen held due to hemoglobin level being 12.0 per protocol.
[2019-08-22] MEDS: ACCU-CHEK COMFORT CURVE STRIP VI SCH ×4 (00:24→18:00)
[2019-08-22] MEDS: InsuLIN REG 1unit/0.01ml Soln (100units/ml) SC SCH ×4 (00:25→18:00)
[2019-08-22 05:00] VITALS: BP 114/68
--- NOTE | 2019-08-22 07:00 | NUR ---
CLOSING NOTE No S/S of distress/SOB or pain. Patient is on room air. Respirations even and unlabored.
--- NOTE | 2019-08-22 07:20 | NUR ---
Opening shift note Assumed care of patient. Patient A&Ox4, sitting up eating breakfast. Respirations even and non-labored with no s/s of distress. IV flushed, patent and intact. Discussed POC with patient. Bed lowered/locked with 2 side rails up. Will continue to monitor.
[2019-08-22 08:00] VITALS: BP 124/72
[2019-08-22 09:00] VITALS: BP 124/72
[2019-08-22] MEDS: SEVELAMER 800 MG TAB PO SCH ×4 (09:19→18:00)
[2019-08-22] MEDS: PANTOPRAZOLE 40 MG TAB PO SCH (09:19)
[2019-08-22] MEDS: LISINOPRIL 5 MG TAB PO SCH (09:20)
[2019-08-22] MEDS: amLODIPine BESYLATE 5 MG TAB PO SCH (09:20)
--- NOTE | 2019-08-22 10:15 | NUR ---
Page to Scale Installer Page to Shayla in medical social worker at this time. Awaiting call back.
[2019-08-22 13:00] VITALS: BP 127/62
--- NOTE | 2019-08-22 13:48 | NUR ---
NUTRITION FOLLOWUP NOTES Pt wt is 56.2 kg Pt was awake when rounded this morning, his appetite is good aeb 100% x3 PO intake per RN doc. Pt noted he is with no distress, doing well. Recommended a Renal Standard diet in lieu of the current [facility] diet order. Will continue to monitor and followup prn. Est. Energy Needs: 3293-0381 kcal (25-30 kcal/kg BW). Est. Protein Needs: 1.2-1.4 gms/day (68-79 gms/kg BW). Will continue to monitor pertinent labs and reassess nutrient need prn LABS: All labs WNL GI: Last BM noted on 08/21/19 BS: 21 low risk, no wounds. PES: Problem 1) Altered nutrition related lab values r/t current medical condition aeb hyperkalemia, elevated RFTs, hyperglycemia, hypocalcemia Comments Will continue to monitor PO intake, pertinent labs, skin status and weight trends. F/u in 3 to 5 days. Additional Recommendation: 1) Consider Renal Standard diet 2) Refer to RD for further nutrition education upon discharge. 3) Continue current plan of care.
--- NOTE | 2019-08-22 15:04 | NUR ---
D/C Planning Placed followed up called to Cheri with [facility] dialysis. Per Cheri patient will be receiving dialysis at [facility] in [facility] Address: ( [address] [address] Ph:). Chair time will be M, W, F at 17:45. Per Cheri patient needs to go tomorrow Sunday08/23/2019 to dialysis at 12:30 noon. Informed REHANA Sweeney.
--- NOTE | 2019-08-22 19:16 | NUR ---
Discharge Discharge instructions given as ordered with jet dyeing machine tender, REHANA Boateng. Encourage to follow up with PMD as instructed. Patient given instructions on dialysis schedule. All questions and concerns addressed. Patient verbalized understanding. Medication reconciliation form completed and copy given to patient. IV removed with catheter intact, pressure dressing applied. Telemetry unit returned to ICU. Patient taken to vehicle via wheelchair with all personal belongings, accompanied by staff and family member. No distress noted at time of departure.
[2019-08-23] MEDS ORDERED: SODIUM CHL 0.9% 1000 ML BAG XX ONE (07:00)
[2019-08-23] MEDS ORDERED: B-COMPLEX W/ C & FOLIC ACID(NEPHROVITE TAB) PO SCH (10:00)
== END 2019-08-22 19:15 | disposition home or self-care (01) | DRG 640 ==
LOC: ER 20:36 → TELE-WESTW 20:37
PROVIDERS: ADMIT Nurse Practitioner; ATTEND Family Medicine
PROC: 5A1D70Z Performance of Urinary Filtration, Intermittent, Less than 6 Hours Per Day (ICD-10-PCS; principal; 2019-08-13)
PROC: 5A1D70Z Performance of Urinary Filtration, Intermittent, Less than 6 Hours Per Day (ICD-10-PCS; 2019-08-15)
PROC: 5A1D70Z Performance of Urinary Filtration, Intermittent, Less than 6 Hours Per Day (ICD-10-PCS; 2019-08-17)
PROC: 5A1D70Z Performance of Urinary Filtration, Intermittent, Less than 6 Hours Per Day (ICD-10-PCS; 2019-08-19)
PROC: 5A1D70Z Performance of Urinary Filtration, Intermittent, Less than 6 Hours Per Day (ICD-10-PCS; 2019-08-21)
DX: E87.5 Hyperkalemia (principal); N18.6 End stage renal disease; I12.0 Hypertensive chronic kidney disease with stage 5 chronic kidney disease or end stage renal disease; N25.81 Secondary hyperparathyroidism of renal origin; D63.8 Anemia in other chronic diseases classified elsewhere; E11.40 Type 2 diabetes mellitus with diabetic neuropathy, unspecified; E11.65 Type 2 diabetes mellitus with hyperglycemia; E11.22 Type 2 diabetes mellitus with diabetic chronic kidney disease; D63.1 Anemia in chronic kidney disease; Z82.49 Family history of ischemic heart disease and other diseases of the circulatory system; Z91.15 Patient's noncompliance with renal dialysis; Z83.3 Family history of diabetes mellitus; Z99.2 Dependence on renal dialysis
CPT/HCPCS: 36415; 71046; 80048; 80053; 82306; 82728; 82962; 83036; 83540; 83550; 83735; 83880; 83970; 84100; 85025; 86704; 86706; 86708; 86803; 87081; 87340; 90935; G0378; J0610; J0885; J1642; J1815

== ENCOUNTER 2021-12-05 18:33 | Emergency (ER) | payer MEDICARE, MEDICAID ==
[~2021-12-05] VITALS: Ht 165.1 cm; Wt 54.5 kg
[~2021-12-05 18:33] MED LIST changes: +AMLO-496 PO; -AMLO10TA13 PO; +CAR125T PO; -CARV25TA PO; +LINA5TAB PO; -LISI-275 PO
[2021-12-05 20:03] LABS: Basophils # (auto) 0 10 ^3/uL (0-0.2); Basophils % (auto) 0.3 % (0.0-2.0); Eosinophils # (auto) 0 10 ^3/uL (0-0.8); Eosinophils % (auto) 0.7 % (0.0-7.0); Hematocrit 35.6 % (41.0-53.0); Hemoglobin 11.6 g/dL (13.5-17.5); Mean Corpuscular Hemoglobin 30.8 pg (28.0-32.0); Mean Corpuscular Hgb Conc. 32.6 g/dL (32.0-36.0); Mean Corpuscular Volume 94.6 fL (80.0-100.0); Monocytes # (auto) 0.5 10 ^3/uL (0-1.3); Monocytes % (auto) 12.4 % (0.0-12.0); Neutrophils # (auto) 2.5 10 ^3/uL (1.6-8.6); Neutrophils % (auto) 61.6 % (37.0-80.0); Nucleated Red Blood Cells % 0.1 %; Red Blood Cells 3.76 10^6/uL (4.5-5.90); Red Cell Distribution Width 15.3 % (11.8-14.3); White Blood Cell 4.1 10^3/uL (4.4-10.8)
[2021-12-05 20:26] LABS: Albumin 3.7 g/dL (3.4-5.0); BUN/Creatinine Ratio 2.2; Calcium 8.2 mg/dL (8.5-10.1); Magnesium 2.4 mg/dL (1.6-2.6); Potassium 5.2 mmol/L (3.5-5.1)
[2021-12-05 20:29] LABS: Bilirubin, Total 0.5 mg/dL (0.2-1.0); Total Protein 6.5 g/dL (6.4-8.2)
[2021-12-06] MEDS ORDERED: hydrALAZINE HCL 20 MG/ML VL IV ONE (02:15)
[2021-12-06 03:58] VITALS: BP 161/74
== END 2021-12-06 04:43 | disposition home or self-care (01) ==
LOC: ER 18:33
DX: I16.0 Hypertensive urgency (principal); E87.5 Hyperkalemia; R07.89 Other chest pain; R51.9 Headache, unspecified; E11.22 Type 2 diabetes mellitus with diabetic chronic kidney disease; I12.0 Hypertensive chronic kidney disease with stage 5 chronic kidney disease or end stage renal disease; N18.6 End stage renal disease
CPT/HCPCS: 36415; 70450; 71045; 80053; 83735; 84484; 85025; 93005; 96374; 99285; J0360

== ENCOUNTER 2022-05-17 19:09 | Inpatient (IN) | payer MEDICARE, MEDICAID ==
[~2022-05-17] VITALS: Ht 152.4 cm; Wt 60.7 kg
[2022-05-17 21:31] LABS: Basophils # (auto) 0 10 ^3/uL (0-0.2); Basophils % (auto) 0.6 % (0.0-2.0); Eosinophils # (auto) 0.2 10 ^3/uL (0-0.8); Eosinophils % (auto) 3.7 % (0.0-7.0); Hematocrit 22.3 % (41.0-53.0); Hemoglobin 7.9 g/dL (13.5-17.5); Lymphocytes # (auto) 0.7 10 ^3/uL (0.4-5.4); Lymphocytes % (auto) 13.8 % (10.0-50.0); Mean Corpuscular Hemoglobin 31.6 pg (28.0-32.0); Mean Corpuscular Hgb Conc. 35.4 g/dL (32.0-36.0); Monocytes # (auto) 0.4 10 ^3/uL (0-1.3); Monocytes % (auto) 8.3 % (0.0-12.0); Neutrophils # (auto) 3.6 10 ^3/uL (1.6-8.6); Neutrophils % (auto) 73.6 % (37.0-80.0); Nucleated Red Blood Cells % 0.1 %; Red Cell Distribution Width 14.1 % (11.8-14.3); White Blood Cell 4.9 10^3/uL (4.4-10.8)
[2022-05-17 21:51] LABS: Albumin 4.2 g/dL (3.4-5.0); Calcium 8.7 mg/dL (8.5-10.1)
[2022-05-17 21:53] LABS: BUN/Creatinine Ratio 6.1
[2022-05-17 21:56] LABS: Bilirubin, Total 0.6 mg/dL (0.2-1.0); Total Protein 7.6 g/dL (6.4-8.2)
[2022-05-18] MEDS ORDERED: DOCUSATE SOD 100 MG CAP PO PRN (02:00)
[2022-05-18] MEDS ORDERED: MAALOX PLUS or MAALOX 30 ML PO PRN (02:00)
[2022-05-18] MEDS ORDERED: HYDROcodone-ACET 5/325MG TAB PO PRN (02:00)
[2022-05-18] MEDS ORDERED: DEXTROSE (50%) 50ML SYRG IV PRN (02:00)
[2022-05-18] MEDS ORDERED: LORazepam 0.5 MG TAB PO PRN (02:00)
[2022-05-18] MEDS ORDERED: ACETAMINOPHEN 325 MG TAB PO PRN (02:00)
[2022-05-18] MEDS ORDERED: MORPHINE SULFATE INJ 2 MG/ml SYRG IV PRN (02:00)
[2022-05-18] MEDS ORDERED: ONDANSETRON HCL 4 MG/2 ML VIAL IV PRN (02:00)
[2022-05-18 06:04] LABS: Basophils # (auto) 0 10 ^3/uL (0-0.2); Basophils % (auto) 0.6 % (0.0-2.0); Eosinophils # (auto) 0.2 10 ^3/uL (0-0.8); Eosinophils % (auto) 6.8 % (0.0-7.0); Hematocrit 22.7 % (41.0-53.0); Lymphocytes # (auto) 0.9 10 ^3/uL (0.4-5.4); Lymphocytes % (auto) 25.7 % (10.0-50.0); Mean Corpuscular Hemoglobin 31.9 pg (28.0-32.0); Mean Corpuscular Hgb Conc. 35.4 g/dL (32.0-36.0); Monocytes # (auto) 0.3 10 ^3/uL (0-1.3); Monocytes % (auto) 8.6 % (0.0-12.0); Neutrophils # (auto) 2.1 10 ^3/uL (1.6-8.6); Neutrophils % (auto) 58.3 % (37.0-80.0); Nucleated Red Blood Cells % 0.1 %; Red Blood Cells 2.52 10^6/uL (4.5-5.90); White Blood Cell 3.6 10^3/uL (4.4-10.8)
[2022-05-18 06:15] LABS: BUN/Creatinine Ratio 6.4; Calcium 8.3 mg/dL (8.5-10.1); Potassium 4.1 mmol/L (3.5-5.1)
[2022-05-18] MEDS: InsuLIN REG 1unit/0.01ml Soln (100units/ml) SC SCH ×4 (06:49→22:32)
[2022-05-18] MEDS: ACCU-CHEK COMFORT CURVE STRIP VI SCH ×4 (06:49→22:26)
[2022-05-18 09:40] LABS: INR 1.05 (0.9-1.15); Partial Thromboplastin Time 29.2 sec (24.6-33.4)
[2022-05-18] MEDS: PIPERACILLIN-TAZOB 2.25GM 50 ML IV SCH ×2 (11:07→22:28)
[2022-05-18] MEDS ORDERED: cloNIDine HCL 0.1 MG TAB PO ONE (22:45)
[2022-05-19] VITALS (10 sets, daily range): BP systolic 135–192; BP diastolic 69–88
[2022-05-19] MEDS: hydrALAZINE HCL 20 MG/ML VL IV PRN ×3 (01:28→18:50)
[2022-05-19 05:48] LABS: Basophils # (auto) 0 10 ^3/uL (0-0.2); Basophils % (auto) 0.6 % (0.0-2.0); Eosinophils # (auto) 0.3 10 ^3/uL (0-0.8); Lymphocytes # (auto) 1.2 10 ^3/uL (0.4-5.4); Mean Corpuscular Hemoglobin 30.7 pg (28.0-32.0); Mean Corpuscular Hgb Conc. 33.8 g/dL (32.0-36.0); Neutrophils # (auto) 1.8 10 ^3/uL (1.6-8.6); White Blood Cell 3.7 10^3/uL (4.4-10.8)
[2022-05-19 05:50] LABS: Eosinophils % (auto) 8.1 % (0.0-7.0); Lymphocytes % (auto) 33.5 % (10.0-50.0); Mean Corpuscular Volume 90.7 fL (80.0-100.0); Monocytes # (auto) 0.4 10 ^3/uL (0-1.3); Monocytes % (auto) 9.7 % (0.0-12.0); Neutrophils % (auto) 48.1 % (37.0-80.0); Nucleated Red Blood Cells % 0.1 %; Red Cell Distribution Width 14.2 % (11.8-14.3)
[2022-05-19 05:55] LABS: Potassium 5.4 mmol/L (3.5-5.1)
[2022-05-19] MEDS: cloNIDine HCL 0.1 MG TAB PO SCH ×3 (06:00→22:00)
[2022-05-19 06:02] LABS: Albumin 3.3 g/dL (3.4-5.0); BUN/Creatinine Ratio 9.2; Bilirubin, Total 0.4 mg/dL (0.2-1.0)
[2022-05-19] MEDS: ACCU-CHEK COMFORT CURVE STRIP VI SCH ×4 (06:22→22:00)
[2022-05-19] MEDS: InsuLIN REG 1unit/0.01ml Soln (100units/ml) SC SCH ×4 (06:23→22:00)
[2022-05-19 07:21] LABS: Hemoglobin 6.8 g/dL (13.5-17.5)
[2022-05-19] MEDS: PIPERACILLIN-TAZOB 2.25GM 50 ML IV SCH ×2 (09:16→22:00)
[2022-05-19] MEDS ORDERED: SODIUM ZIRCONIUM CYCL 10 GM PAK PO ONE (21:00)
[2022-05-20] VITALS (7 sets, daily range): BP systolic 135–175; BP diastolic 52–81
[2022-05-20 05:47] LABS: Basophils # (auto) 0 10 ^3/uL (0-0.2); Eosinophils # (auto) 0.3 10 ^3/uL (0-0.8); Mean Corpuscular Hemoglobin 32.3 pg (28.0-32.0); Monocytes # (auto) 0.4 10 ^3/uL (0-1.3); Neutrophils # (auto) 2.5 10 ^3/uL (1.6-8.6); Nucleated Red Blood Cells % 0.1 %
[2022-05-20 05:50] LABS: Basophils % (auto) 0.4 % (0.0-2.0); Eosinophils % (auto) 6.4 % (0.0-7.0); Hematocrit 22.2 % (41.0-53.0); Lymphocytes # (auto) 1.2 10 ^3/uL (0.4-5.4); Lymphocytes % (auto) 26.5 % (10.0-50.0); Mean Corpuscular Volume 89.7 fL (80.0-100.0); Neutrophils % (auto) 57.7 % (37.0-80.0); Red Blood Cells 2.48 10^6/uL (4.5-5.90); Red Cell Distribution Width 14.1 % (11.8-14.3); White Blood Cell 4.4 10^3/uL (4.4-10.8)
[2022-05-20] MEDS: cloNIDine HCL 0.1 MG TAB PO SCH ×3 (05:58→21:39)
[2022-05-20] MEDS: InsuLIN REG 1unit/0.01ml Soln (100units/ml) SC SCH ×4 (06:08→21:49)
[2022-05-20] MEDS: ACCU-CHEK COMFORT CURVE STRIP VI SCH ×4 (06:08→21:39)
[2022-05-20] MEDS: hydrALAZINE HCL 20 MG/ML VL IV PRN ×2 (07:34→17:58)
[2022-05-20] MEDS: PIPERACILLIN-TAZOB 2.25GM 50 ML IV SCH ×2 (08:40→21:31)
[2022-05-21] VITALS (7 sets, daily range): BP systolic 142–159; BP diastolic 53–76
[2022-05-21] MEDS: cloNIDine HCL 0.1 MG TAB PO SCH ×2 (05:44→14:00)
[2022-05-21] MEDS: ACCU-CHEK COMFORT CURVE STRIP VI SCH ×3 (05:49→16:40)
[2022-05-21] MEDS: InsuLIN REG 1unit/0.01ml Soln (100units/ml) SC SCH ×3 (05:49→16:39)
[2022-05-21] MEDS: hydrALAZINE HCL 20 MG/ML VL IV PRN ×2 (09:22→16:00)
[2022-05-21] MEDS: PIPERACILLIN-TAZOB 2.25GM 50 ML IV SCH (09:22)
[2022-05-21] MEDS ORDERED: CLON0.1T PO (13:22)
[2022-05-22 14:43] LABS: Hepatitis C Antibody Negative (Negative)
== END 2022-05-21 17:03 | disposition home or self-care (01) | DRG 682 ==
LOC: EDBD 19:09 → EDSEX 19:09 → ER 19:09 → TELE 05-18 02:02 → TELE-WESTW 05-18 22:24
PROVIDERS: ADMIT Hospitalist; ATTEND Internal Medicine
PROC: 30233N1 Transfusion of Nonautologous Red Blood Cells into Peripheral Vein, Percutaneous Approach (ICD-10-PCS; principal; 2022-05-19)
PROC: 5A1D70Z Performance of Urinary Filtration, Intermittent, Less than 6 Hours Per Day (ICD-10-PCS; 2022-05-20)
DX: I12.0 Hypertensive chronic kidney disease with stage 5 chronic kidney disease or end stage renal disease (principal); N18.6 End stage renal disease; D63.1 Anemia in chronic kidney disease; Z20.822 Contact with and (suspected) exposure to COVID-19; E11.22 Type 2 diabetes mellitus with diabetic chronic kidney disease; Z99.2 Dependence on renal dialysis; Z79.4 Long term (current) use of insulin; Z79.84 Long term (current) use of oral hypoglycemic drugs; Z79.899 Other long term (current) drug therapy; Z82.49 Family history of ischemic heart disease and other diseases of the circulatory system; Z83.3 Family history of diabetes mellitus
CPT/HCPCS: 36415; 71045; 74176; 78226; 80048; 80053; 82248; 82962; 83605; 83690; 84443; 84484; 85025; 85610; 85730; 86803; 86850; 86900; 86901; 86920; 87081; 87340; 87426; 90935; G0378; J1815; J2543

== ENCOUNTER 2022-10-17 12:17 | Inpatient (IN) | payer MEDICARE, MEDICAID ==
[~2022-10-17] VITALS: Ht 160 cm; Wt 20.3 kg
[~2022-10-17 12:17] MED LIST changes: -AMLO-496 PO; +AMLO1TAB23 PO; +CLON0.1T PO
[2022-10-17 14:06] LABS: Basophils # (auto) 0 10 ^3/uL (0-0.2); Basophils % (auto) 1.3 % (0.0-2.0); Eosinophils # (auto) 0.2 10 ^3/uL (0-0.8); Eosinophils % (auto) 7.1 % (0.0-7.0); Hemoglobin 11.5 g/dL (13.5-17.5); Lymphocytes # (auto) 0.7 10 ^3/uL (0.4-5.4); Lymphocytes % (auto) 29.4 % (10.0-50.0); Mean Corpuscular Hemoglobin 32.1 pg (28.0-32.0); Mean Corpuscular Hgb Conc. 32.9 g/dL (32.0-36.0); Mean Corpuscular Volume 97.6 fL (80.0-100.0); Monocytes # (auto) 0.3 10 ^3/uL (0-1.3); Monocytes % (auto) 12.1 % (0.0-12.0); Neutrophils # (auto) 1.2 10 ^3/uL (1.6-8.6); Neutrophils % (auto) 50.1 % (37.0-80.0); Red Blood Cells 3.59 10^6/uL (4.5-5.90); White Blood Cell 2.5 10^3/uL (4.4-10.8)
[2022-10-17 14:25] LABS: Albumin 3.6 g/dL (3.4-5.0); Calcium 8.6 mg/dL (8.5-10.1)
[2022-10-17 14:30] LABS: BUN/Creatinine Ratio 2.6 (10.0-20.0); Bilirubin, Total 0.5 mg/dL (0.2-1.0); Total Protein 6.4 g/dL (6.4-8.2)
[2022-10-17 14:49] LABS: Potassium 5.8 mmol/L (3.5-5.1)
[2022-10-17] MEDS ORDERED: SODIUM BICARBONATE 8.4 % INJ 50ML VIAL IV ONE (15:00)
[2022-10-17] MEDS ORDERED: CALCIUM GLUC 1,000mg/50ml-NS 50 ML IV ONE (15:00)
[2022-10-17] MEDS ORDERED: hydrALAZINE HCL 20 MG/ML VL IV ONE (17:30)
[2022-10-17] MEDS ORDERED: MORPHINE SULFATE INJ 2 MG/ml SYRG IV PRN (18:00)
[2022-10-17] MEDS ORDERED: NITROGLYCERIN 0.4 MG SL TAB SL PRN (18:00)
[2022-10-17] MEDS ORDERED: DEXTROSE (50%) 50ML SYRG IV PRN (19:45)
[2022-10-17] MEDS: hydrALAZINE HCL 20 MG/ML VL IV PRN (20:54)
[2022-10-17] MEDS: ACCU-CHEK COMFORT CURVE STRIP VI SCH (22:29)
[2022-10-17] MEDS: cloNIDine HCL 0.1 MG TAB PO SCH (22:36)
[2022-10-17] MEDS: CARVEDILOL 12.5 MG TAB PO SCH (22:36)
[2022-10-17] MEDS: InsuLIN REG 1unit/0.01ml Soln (100units/ml) SC SCH (22:37)
[2022-10-18] MEDS: hydrALAZINE HCL 20 MG/ML VL IV PRN ×2 (02:39→21:31)
[2022-10-18] MEDS ORDERED: HYDROcodone-ACET 5/325MG TAB PO ONE (02:45)
[2022-10-18 06:17] LABS: Basophils # (auto) 0 10 ^3/uL (0-0.2); Basophils % (auto) 0.7 % (0.0-2.0); Eosinophils # (auto) 0.2 10 ^3/uL (0-0.8); Eosinophils % (auto) 6.4 % (0.0-7.0); Hematocrit 32.6 % (41.0-53.0); Hemoglobin 11.3 g/dL (13.5-17.5); Lymphocytes # (auto) 0.9 10 ^3/uL (0.4-5.4); Lymphocytes % (auto) 27.2 % (10.0-50.0); Mean Corpuscular Hemoglobin 33.4 pg (28.0-32.0); Mean Corpuscular Hgb Conc. 34.6 g/dL (32.0-36.0); Mean Corpuscular Volume 96.7 fL (80.0-100.0); Monocytes # (auto) 0.4 10 ^3/uL (0-1.3); Monocytes % (auto) 12.5 % (0.0-12.0); Neutrophils # (auto) 1.7 10 ^3/uL (1.6-8.6); Neutrophils % (auto) 53.2 % (37.0-80.0); Nucleated Red Blood Cells % 0.1 %; Red Blood Cells 3.38 10^6/uL (4.5-5.90); Red Cell Distribution Width 15.9 % (11.8-14.3); White Blood Cell 3.2 10^3/uL (4.4-10.8)
[2022-10-18] MEDS: cloNIDine HCL 0.1 MG TAB PO SCH ×3 (06:29→21:30)
[2022-10-18 06:31] LABS: Albumin 2.9 g/dL (3.4-5.0); Calcium 8.5 mg/dL (8.5-10.1)
[2022-10-18 06:33] LABS: BUN/Creatinine Ratio 3.5 (10.0-20.0); Bilirubin, Total 0.3 mg/dL (0.2-1.0); Total Protein 5.5 g/dL (6.4-8.2)
[2022-10-18] MEDS: ACCU-CHEK COMFORT CURVE STRIP VI SCH ×4 (06:39→22:00)
[2022-10-18] MEDS: InsuLIN REG 1unit/0.01ml Soln (100units/ml) SC SCH ×4 (06:40→22:29)
[2022-10-18 06:45] LABS: Potassium 5.8 mmol/L (3.5-5.1)
[2022-10-18] MEDS ORDERED: SODIUM ZIRCONIUM CYCL 10 GM PAK PO ONE (07:00)
[2022-10-18] MEDS ORDERED: amLODIPine BESYLATE 5 MG TAB PO SCH (10:00)
[2022-10-18] MEDS: PANTOPRAZOLE 40 MG TAB PO SCH (10:07)
[2022-10-18] MEDS: CARVEDILOL 12.5 MG TAB PO SCH (10:16)
[2022-10-18] MEDS: MORPHINE SULFATE INJ 2 MG/ml SYRG IV PRN (10:18)
[2022-10-18 10:32] VITALS: BP 171/73
[2022-10-18] MEDS ORDERED: SODIUM CHL 0.9% 1000 ML BAG XX ONE (11:15)
[2022-10-18 13:00] VITALS: BP 180/77
[2022-10-18 17:00] VITALS: BP 139/72
[2022-10-18 22:00] VITALS: BP 162/79
[2022-10-19 05:00] VITALS: BP 181/80
[2022-10-19] MEDS: hydrALAZINE HCL 20 MG/ML VL IV PRN (05:23)
[2022-10-19] MEDS: MORPHINE SULFATE INJ 2 MG/ml SYRG IV PRN (05:24)
[2022-10-19] MEDS: ACCU-CHEK COMFORT CURVE STRIP VI SCH ×3 (05:25→17:00)
[2022-10-19] MEDS: cloNIDine HCL 0.1 MG TAB PO SCH ×2 (05:25→15:01)
[2022-10-19] MEDS: InsuLIN REG 1unit/0.01ml Soln (100units/ml) SC SCH ×3 (05:42→17:00)
[2022-10-19] MEDS: PANTOPRAZOLE 40 MG TAB PO SCH (09:25)
[2022-10-19 10:00] VITALS: BP 185/79
[2022-10-19] MEDS ORDERED: NIFEdipine ER 30 MG TAB PO SCH (10:00)
[2022-10-19] MEDS ORDERED: CYCL-838 PO (11:37)
[2022-10-19] MEDS ORDERED: NIFE1TAB31 PO (11:37)
[2022-10-19 13:00] VITALS: BP 132/78
[2022-10-19 17:29] VITALS: BP 189/83
== END 2022-10-19 19:52 | disposition home or self-care (01) | DRG 640 ==
LOC: EDBD 12:17 → ER 12:17 → TELE 17:58 → TELE-EAST 10-18 09:46
PROVIDERS: ADMIT Nurse Practitioner Family; ATTEND Internal Medicine
PROC: 5A1D70Z Performance of Urinary Filtration, Intermittent, Less than 6 Hours Per Day (ICD-10-PCS; principal; 2022-10-18)
DX: E87.5 Hyperkalemia (principal); N18.6 End stage renal disease; I12.0 Hypertensive chronic kidney disease with stage 5 chronic kidney disease or end stage renal disease; S09.90XA Unspecified injury of head, initial encounter; I16.0 Hypertensive urgency; M54.50 Low back pain, unspecified; M25.561 Pain in right knee; M25.572 Pain in left ankle and joints of left foot; X58.XXXA Exposure to other specified factors, initial encounter; E11.22 Type 2 diabetes mellitus with diabetic chronic kidney disease; V03.10XA Pedestrian on foot injured in collision with car, pick-up truck or van in traffic accident, initial encounter; Z82.49 Family history of ischemic heart disease and other diseases of the circulatory system; Z83.3 Family history of diabetes mellitus; Z99.2 Dependence on renal dialysis; Y93.89 Activity, other specified; Y92.89 Other specified places as the place of occurrence of the external cause; Y99.8 Other external cause status
CPT/HCPCS: 36415; 70450; 70551; 72125; 72131; 73562; 73610; 80053; 82962; 85025; 90935; 96365; 96375; G0378; J1815

== ENCOUNTER 2024-02-27 17:14 | Emergency (ER) | payer MEDICARE, MEDICAID ==
[~2024-02-27] VITALS: Ht 175.3 cm; Wt 68.0 kg
[~2024-02-27 17:14] MED LIST changes: -AMLO1TAB23 PO; -CAR125T PO; +CARV-216 PO; +CYCL-838 PO; +NIFE1TAB31 PO
[2024-02-27 17:59] VITALS: PULSE 84; RESP 17; O2SAT 95
[2024-02-27 19:08] LABS: Basophils # (auto) 0 10 ^3/uL (0-0.2); Basophils % (auto) 0.6 % (0.0-2.0); Eosinophils # (auto) 0.1 10 ^3/uL (0-0.8); Hematocrit 28.1 % (41.0-53.0); Hemoglobin 9.5 g/dL (13.5-17.5); Lymphocytes # (auto) 0.7 10 ^3/uL (0.4-5.4); Mean Corpuscular Hemoglobin 33.2 pg (28.0-32.0); Mean Corpuscular Hgb Conc. 33.7 g/dL (32.0-36.0); Mean Corpuscular Volume 98.4 fL (80.0-100.0); Monocytes # (auto) 0.3 10 ^3/uL (0-1.3); Neutrophils # (auto) 2.6 10 ^3/uL (1.6-8.6); Neutrophils % (auto) 69.4 % (37.0-80.0); Nucleated Red Blood Cells % 0.1 %; Platelet Count (auto) 139 10^3/uL (140-450); Red Blood Cells 2.86 10^6/uL (4.5-5.90); Red Cell Distribution Width 12.8 % (11.8-14.3); White Blood Cell 3.7 10^3/uL (4.4-10.8)
[2024-02-27 19:47] LABS: Alanine Aminotransferase 14 U/L (7-40); Albumin 4.1 g/dL (3.2-4.8); Alkaline Phosphatase 135 U/L (46-116); Anion Gap 7 (5-15); Aspartate Aminotransferase 13 U/L (13-40); Blood Urea Nitrogen 37 mg/dL (9-23); Calcium 8.9 mg/dL (8.7-10.4); Carbon Dioxide 29 mmol/L (20-31); Chloride 103 mmol/L (98-107); Glucose 88 mg/dL (74-106); Potassium 3.9 mmol/L (3.5-5.1); Sodium 139 mmol/L (136-145)
[2024-02-27 19:48] LABS: Bilirubin, Total 0.4 mg/dL (0.2-1.0); Total Protein 6.7 g/dL (5.7-8.2)
[2024-02-27 20:00] VITALS: PULSE 72; RESP 11; O2SAT 94
[2024-02-27 21:00] VITALS: TEMP 97.7
[2024-02-27 22:00] VITALS: BP 130/64; PULSE 56; RESP 11; O2SAT 95
== END 2024-02-27 23:07 | disposition home or self-care (01) ==
LOC: EDBD 17:14 → ER 17:14
DX: I16.0 Hypertensive urgency (principal); E11.22 Type 2 diabetes mellitus with diabetic chronic kidney disease; I12.0 Hypertensive chronic kidney disease with stage 5 chronic kidney disease or end stage renal disease; N18.6 End stage renal disease; D64.9 Anemia, unspecified; R51.9 Headache, unspecified; Z99.2 Dependence on renal dialysis; Z79.899 Other long term (current) drug therapy
CPT/HCPCS: 36415; 70450; 71045; 80053; 85025; 93005